=== PATIENT | male | born 1975 | race Asian ===

== ENCOUNTER → 2023-10-26 | Emergency (ER) | payer OTHER, SELFPAY ==
[~2023-10-26] VITALS: Ht 170.2 cm; Wt 81.8 kg
[2023-10-26 12:50] VITALS: BP 159/82; PULSE 78; RESP 20; TEMP 98.4
== END | disposition home or self-care (01) ==
LOC: EMS 12:41
DX: M23.8X2 Other internal derangements of left knee (principal); M25.462 Effusion, left knee; F17.210 Nicotine dependence, cigarettes, uncomplicated
CPT/HCPCS: 99283

== ENCOUNTER 2023-10-29 14:40 | Emergency (ER) | payer OTHER ==
[~2023-10-29] VITALS: Ht 170.2 cm; Wt 84.1 kg
[2023-10-29 15:06] VITALS: BP 145/83; PULSE 84; RESP 18; TEMP 98.3
== END 2023-10-29 16:31 | disposition home or self-care (01) ==
LOC: EMS 14:40
DX: M25.562 Pain in left knee (principal); M19.90 Unspecified osteoarthritis, unspecified site; F17.210 Nicotine dependence, cigarettes, uncomplicated
CPT/HCPCS: 99281; Z7502